=== PATIENT | male | born 1930 | race Caucasian/White ===

== ENCOUNTER → 2017-01-14 | Outpatient (CLI) | payer MEDICARE ==
[~2017-01-14] MED LIST: ASP325T PO; ASP81TEC PO; CALC-80 PO; CALC-9 PO; HCT25T PO; LOTE5DRO4 OP; LOVA40TA2 PO; MULT1CAP27 PO; OMG1KC PO
--- NOTE | 2017-01-14 18:21 | Diagnostic Imaging Report ---
EXAMINATION: PA and lateral views of the chest. INDICATION: Cough. COMPARISON: 02/16/2012. FINDINGS: There is mild infiltrate or atelectasis in the left lung base. The right lung is clear. The heart size is at the upper limits of normal. No effusion or pneumothorax. The mediastinum and yessenia appear unremarkable. IMPRESSION: There is mild left basilar infiltrate or atelectasis. Dictated by: Dictated on workstation # [id number]
== END ==
LOC: RAD 13:31
PROVIDERS: ATTEND Family Medicine
DX: R05 Cough (principal)
CPT/HCPCS: 71020

== ENCOUNTER → 2017-03-18 | Outpatient (CLI) | payer MEDICARE ==
--- NOTE | 2017-03-18 12:24 | Diagnostic Imaging Report ---
PROCEDURE: CT sinuses without contrast TECHNIQUE: Multiple contiguous axial images were obtained through the sinuses without the use of intravenous contrast. Coronal and sagittal reformations were then performed. INDICATION: Chronic sinusitis. COMPARISON: 10/26/2015. FINDINGS: There is persistent significant opacification of the right maxillary sinus with improvement of aeration of the sinus lumen posteriorly and superiorly when compared to 2016 exam. There is persistent hyperdensity within the lumen which may indicate fungal etiology as described previously. Bone thickening around the right maxillary sinus duvall is suggestive of chronic inflammation sequela. There is mild mucosal thickening along the inferior aspect of the ostiomeatal complex on the right side. The left maxillary sinus demonstrates minimal mucosal thickening inferiorly and patent ostiomeatal complex. There is a mild septal deviation to the left. There is mucosal thickening along the mid and inferior turbinates on the right side and inferior turbinates on the left side. There is a fluid level or debris suggested in lizandro bullosa on the right side. These are similar to the prior exam. Ethmoidal air cells demonstrate minimal mucosal thickening. The frontal sinuses demonstrate mild mucosal thickening inferiorly. The sphenoidal sinuses appear clear. The mastoid air cells and middle ear cavities appear clear. IMPRESSION: Slight improvement in the right maxillary chronic sinusitis with better aeration posteriorly and superiorly. Dictated by: Dictated on workstation # [id number]
== END ==
LOC: RAD 10:29
PROVIDERS: ATTEND Otolaryngology Otolaryngology/Facial Plastic Surgery
DX: J32.0 Chronic maxillary sinusitis (principal)
CPT/HCPCS: 70486

== ENCOUNTER → 2018-07-22 | Outpatient (CLI) | payer MEDICARE | LOC: CARD 11:47 | PROVIDERS: ATTEND Internal Medicine Cardiovascular Disease | DX: I25.10 Atherosclerotic heart disease of native coronary artery without angina pectoris (principal); I77.89 Other specified disorders of arteries and arterioles; K21.9 Gastro-esophageal reflux disease without esophagitis; E78.5 Hyperlipidemia, unspecified; G45.3 Amaurosis fugax; I35.1 Nonrheumatic aortic (valve) insufficiency | CPT/HCPCS: 93306 ==

== ENCOUNTER → 2018-07-22 | Outpatient (CLI) | payer MEDICARE ==
--- NOTE | 2018-07-22 13:40 | Diagnostic Imaging Report ---
PROCEDURE: CT head without contrast. TECHNIQUE: Multiple contiguous axial images were obtained through the brain without the use of intravenous contrast. INDICATION: Visual changes. COMPARISON: No prior studies are available for comparison. FINDINGS: The ventricles and sulci are consistent with the patient's age. No sulcal effacement, midline shift or hemorrhage is detected. Cisterns are patent. Visualized paranasal sinuses are clear. IMPRESSION: No acute intracranial process is detected. Dictated by: Dictated on workstation # [id number]
== END ==
LOC: RAD 11:50
PROVIDERS: ATTEND Family Medicine
DX: H53.9 Unspecified visual disturbance (principal)
CPT/HCPCS: 70450

== ENCOUNTER → 2018-08-26 | Outpatient (CLI) | payer MEDICARE ==
--- NOTE | 2018-08-26 15:05 | Diagnostic Imaging Report ---
CLINICAL INDICATION: Patient with history of visual changes. EXAM: MRI of the brain performed without IV contrast. Sequences include axial DWI, ADC map, axial T2, axial FLAIR, axial T1, coronal gradient echo, and sagittal T1. COMPARISON: Head CT without contrast dated 07/22/2018. FINDINGS: There is no evidence of acute cerebral infarct, intracranial hemorrhage, or gross mass effect. There is diffuse brain parenchymal volume loss seen. There is focal and mildly confluent areas of high T2 signal white matter changes seen throughout both cerebral hemispheres and periventricular regions, likely representing chronic small vessel ischemic disease. There is normal back-white matter distinction. There is no significant midline shift or herniation. There is no evidence of hydrocephalus. 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 The basal cisterns are unremarkable. The skull, extracranial soft tissue, and orbits are unremarkable. There is complete consolidation of the right maxillary sinus with low T2 signal suspected to represent inspissated secretions, calcification, and/or fungal elements in the right maxillary sinus. There is mild mucosal thickening involving the ethmoid sinus and left maxillary sinus. There is moderate fluid in both mastoid air cells. Temporal bones show no significant abnormality. IMPRESSION: 1: There is no evidence of acute intracranial process. 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 4: Paranasal sinus disease including consolidation of the right maxillary sinus. Low T2 signal within the right maxillary sinus may be related to inspissated secretions versus calcification versus fungal elements. Dictated by: Dictated on workstation # [id number]
== END ==
LOC: RAD 11:33
PROVIDERS: ATTEND Nurse Practitioner Family
DX: I67.82 Cerebral ischemia (principal); I67.81 Acute cerebrovascular insufficiency; D76.3 Other histiocytosis syndromes; J32.9 Chronic sinusitis, unspecified; H53.8 Other visual disturbances
CPT/HCPCS: 70551